=== PATIENT | female | born 2000 | race Caucasian/White ===

== ENCOUNTER 2019-03-22 04:22 | Emergency (ER) | payer OTHER ==
--- NOTE | 2019-03-22 04:42 | PDOC ---
History of Present Illness - General Chief Complaint: Shortness of Breath Stated Complaint: DIFFICULTY BREATHING & SWALLOWING Time Seen by Provider: 03/22/19 04:42 History Source: Patient Exam Limitations: No Limitations - History of Present Illness Initial Comments: 03/22/19 04:42 Nolvia Grace is a 18F with PMH anemia 2/2 heavy menses on OCP presenting with fever/chills/SOB. Patient reports that she has had a bad non-productive cough since yesterday, and today developed fever and chills. Denies chest pain, nausea, vomiting, diarrhea, constipation, abdominal pain, urinary symptoms. Says her whole family has been sick, her mother, sister, and niece have all had similar fever/chills. PMH anemia, has heavy menses, on OCP for this. Denies history of asthma, non- smoker. Past History - Past Medical History Allergies/Adverse Reactions: Allergies Allergy/AdvReac Type Severity Reaction Status Date / Time No Known Allergies Allergy Verified 03/22/19 04:40 Home Medications: Ambulatory Orders Norgestimate-Ethinyl Estradiol [Vti-Jz-Ehsljvkzj Tablet] 1 each PO DAILY Oseltamivir Phosphate [Tamiflu -] 75 mg PO BID #10 capsule 03/22/19 Anemia: Yes - Immunization History Immunization Up to Date: Yes - Psycho Social/Smoking Cessation Hx Smoking Status: No Smoking History: Never smoked Hx Alcohol Use: No Substance Use Type: None Review of Systems - Review of Systems Able to Perform ROS?: Yes Constitutional: Yes: Chills, Fever. No: Weakness HEENTM: No: Symptoms Reported Respiratory: Yes: Cough Cardiac (ROS): No: Symptoms Reported ABD/GI: No: Symptoms Reported : No: Symptoms Reported Musculoskeletal: No: Symptoms Reported Integumentary: No: Symptoms Reported Neurological: No: Symptoms reported Endocrine: No: Symptoms Reported Hematologic/Lymphatic: No: Symptoms Reported All Other Systems: Reviewed and Negative *Physical Exam - Physical Exam General Appearance: Yes: Nourished, Appropriately Dressed. No: Apparent Distress HEENT: positive: EOMI, HOMAR, Normal ENT Inspection, Normal Voice, Symmetrical, Nasal Congestion, Hearing Grossly Normal. negative: Pharynx Normal (large R tonsil), Scleral Icterus (R), Scleral Icterus (L), Pharyngeal Erythema, Tonsillar Exudate, Tonsillar Erythema Neck: positive: Trachea midline, Normal Thyroid, Supple. negative: Tender, Lymphadenopathy (R), Lymphadenopathy (L) Respiratory/Chest: positive: Lungs Clear, Normal Breath Sounds. negative: Chest Tender, Respiratory Distress, Accessory Muscle Use, Labored Respiration, Crackles, Rales, Rhonchi, Stridor, Wheezing Cardiovascular: positive: Regular Rhythm, Tachycardia Gastrointestinal/Abdominal: positive: Normal Bowel Sounds, Flat, Soft. negative : Tender, Organomegaly, Pulsatile Mass, Guarding, Rebound Musculoskeletal: positive: Normal Inspection. negative: CVA Tenderness, Vertebral Tenderness Extremity: positive: Normal Capillary Refill, Normal Inspection, Normal Range of Motion. negative: Tender Integumentary: positive: Normal Color, Dry, Warm Neurologic: positive: Fully Oriented, Alert, Normal Mood/Affect, Normal Response ED Treatment Course - LABORATORY CBC & Chemistry Diagram: 03/22/19 05:30 03/22/19 05:30 Medical Decision Making - Medical Decision Making 03/22/19 04:42 Nolvia Grace is a 18F with PMH anemia 2/2 heavy menses on OCP presenting with fever/chills/SOB. Patient has fever, chills, cough, known sick contacts. Also here with fever to 101 and tachy to 117. Ddx includes PNA vs. PE vs. sepsis. Patient appears well at this time and is in no acute distress, has no SOB, most likely viral URI. CMP CBC CXR Rapid flu Serum preg 1L NS for tachy, Ofirmev for fever 03/22/19 06:29 Patient has positive flu B Ordering for Tamiflu and continued dose at home. CXR shows no acute PNA. Stable to be discharged home with PMD f/u and Tamiflu. Discharge - Discharge Information Problems reviewed: Yes Clinical Impression/Diagnosis: Influenza B Fever Qualifiers: Fever type: unspecified Qualified Code(s): R50.9 - Fever, unspecified Condition: Stable Disposition: HOME - Admission No - Additional Discharge Information Prescriptions: Oseltamivir Phosphate [Tamiflu -] 75 mg PO BID #10 capsule - Follow up/Referral Referrals: Juana Vargas [Primary Care Provider] - - Patient Discharge Instructions Patient Printed Discharge Instructions: DI for Influenza -- Adult Additional Instructions: Today you were evaluated for fever and cough. Your labs show that you have the flu. At home, please drink lots of fluids and take Tylenol as needed for your fevers. We have sent a prescription for Tamiflu , a medication to treat the flu, to your pharmacy. You should recover within the next week with medications and fluids. Please follow-up with your primary doctor in the next 3 days for further care. If you experience worsening fever, nausea, vomiting, chest pain, diarrhea, or any other new or concerning symptoms, please return to the emergency room. - Post Discharge Activity Work/Back to School Note: Back to Work, Back to School
[2019-03-22 04:49] VITALS: BMI 34.1
--- NOTE | 2019-03-22 05:01 | PDOC ---
Attending Attestation - Resident Resident Name: Johann Lopez - ED Attending Attestation I have performed the following: I have examined & evaluated the patient, The case was reviewed & discussed with the resident, I agree w/resident's findings & plan - HPI HPI: 03/22/19 07:11 see resident hpi - Physicial Exam PE: 03/22/19 07:12 agree with resident exam - Medical Decision Making 03/22/19 07:12 18-year-old female with fever chills and body aches Influenza B is positive Chest x-ray shows no focal infiltrate Will DC with antivirals with outpatient follow-up
[2019-03-22] MEDS ORDERED: SODIUM CHLORIDE 0.9% 500 ML INFUS.BAG IV ONE (05:15)
[2019-03-22] MEDS ORDERED: ACETAMINOPHEN 1000 MG/100 ML VIAL (NON FORMULARY) IVPB ONE (05:15)
[2019-03-22] MEDS ORDERED: ACETAMINOPHEN INJECTION 100 ML IVPB ONE (05:19)
[2019-03-22 05:44] LABS: BASO % 0.6 % (0-2.0); HEMOGLOBIN 12.4 GM/dL (10.7-15.3); LYMPH % 11.4 % (8-40); MCH 29.1 pg (25.7-33.7); MCHC 34.4 g/dl (32.0-36.0); MEAN CELL VOLUME 84.5 fl (80-96); PLATELET COUNT 319 K/MM3 (134-434); RBC 4.26 M/mm3 (3.60-5.2); RDW 13.6 % (11.6-15.6); WHITE BLOOD COUNT 9.3 K/mm3 (4.0-10.0)
[2019-03-22] MEDS ORDERED: OSELTAMIVIR PHOSPHATE 75 MG CAPSULE PO ONE (06:03)
[2019-03-22 06:10] LABS: ALBUMIN 3.7 g/dl (3.4-5.0); BILIRUBIN,TOTAL 0.2 mg/dL (0.2-1); CALCIUM 8.9 mg/dL (8.5-10.1); CREATININE 0.7 mg/dL (0.55-1.3); POTASSIUM 3.5 mmol/L (3.5-5.1)
[2019-03-22] MEDS ORDERED: OSELTAMIVIR PHOSPHATE 75 MG CAPSULE ONE (06:21)
[2019-03-22 06:53] VITALS: BP 125/75; PULSE 91; TEMP 99.4
== END 2019-03-22 06:51 | disposition home or self-care (01) ==
LOC: JER 04:22
PROC: 3E033NZ Introduction of Analgesics, Hypnotics, Sedatives into Peripheral Vein, Percutaneous Approach (ICD-10-PCS; principal; 2019-03-22)
DX: J10.1 Influenza due to other identified influenza virus with other respiratory manifestations (principal); R50.9 Fever, unspecified; D64.9 Anemia, unspecified
CPT/HCPCS: 36415; 71046-TC-FY; 80053; 84703; 85025; 87804; 99282-25; J0131

== ENCOUNTER 2022-01-13 19:56 | Emergency (ER) | payer OTHER ==
[2022-01-13 20:08] VITALS: BP 132/87; PULSE 86; RESP 20; TEMP 98.2; BMI 37.1
[2022-01-13] MEDS ORDERED: IBUPROFEN 600 MG TABLET (FP) PO ONE ×2 (21:08→21:12)
[2022-01-13] MEDS ORDERED: LIDOCAINE 5% TOPICAL PATCH TP ONE (21:08)
[2022-01-13] MEDS ORDERED: PSEUDOEPHEDRINE HCL 60 MG TABLET PO ONE (21:08)
[2022-01-13] MEDS ORDERED: PSEUDOEPHEDRINE HCL 60 MG TABLET ONE (21:12)
[2022-01-13] MEDS ORDERED: LIDOCAINE 5% TOPICAL PATCH ONE (21:12)
[2022-01-14] MEDS ORDERED: LIDOCAINE PATCH REMOVAL MC ONE (09:00)
== END 2022-01-13 21:30 | disposition home or self-care (01) ==
LOC: JER 19:56
DX: R07.9 Chest pain, unspecified (principal)
CPT/HCPCS: 71046-TC-FY; 93005; 93010; 99284-25